=== PATIENT | female | born 1995 | race African-American/Black ===

== ENCOUNTER 2020-03-29 22:01 | Emergency (ER) | payer OTHER ==
[~2020-03-29] VITALS: Ht 175.3 cm; Wt 104.3 kg
[~2020-03-29 22:01] MED LIST: BACTRIM DS TAB1 EACH PO
[2020-03-29] MEDS ORDERED: PNV 29-1 TABLE1 EACH PO (22:17)
[2020-03-29 22:54] LABS: URINE BILIRUBIN NEGATIVE (Negative); URINE BLOOD NEGATIVE (Negative); URINE CLARITY CLEAR; URINE COLOR YELLOW; URINE GLUCOSE-RANDOM* NEGATIVE (Negative); URINE KETONES NEGATIVE (Negative); URINE LEUKOCYTES-REFLEX TRACE (Negative); URINE NITRITE-REFLEX NEGATIVE (Negative); URINE PROTEIN (DIPSTICK) NEGATIVE (Negative); URINE UROBILINOGEN 0.2 E.U./dl (0.2-1.0)
[2020-03-29 23:15] LABS: BASOPHILS 1.1 % (0.0-2.0); EOSINOPHILS 1.2 % (0.0-3.0); HEMATOCRIT 36.4 % (37.0-47.0); HEMOGLOBIN 11.8 gm/dL (12.0-15.0); LYMPHOCYTES 35.4 % (24.0-44.0); MCH 21.9 pg (26.0-34.0); MCHC 32.5 g/dL (28.0-37.0); MCV 67.3 fL (80.0-100.0); MONOCYTES 7.6 % (1.0-8.0); PLATELET COUNT 325 thou/uL (150-400); POLYS 54.7 % (36.0-66.0); RDW 14.4 % (10.5-14.5); WBC 7.4 thou/uL (4.0-11.0)
[2020-03-29 23:25] LABS: ANION GAP 11 mmol/L (7-16); BUN 10 mg/dL (7-18); CALCIUM 8.7 mg/dL (8.5-10.1); CHLORIDE 104 mmol/L (98-107); CO2 23 mmol/L (21-32); CREATININE 0.8 mg/dL (0.6-1.0); GLUCOSE 116 mg/dL (74-106); POTASSIUM 3.5 mmol/L (3.5-5.1); SODIUM 138 mmol/L (136-145)
[2020-03-29 23:28] LABS: ALBUMIN 3.5 g/dL (3.4-5.0); DIRECT BILIRUBIN < 0.1 mg/dL (<0.1-0.2); LIPASE 105 U/L (73-393); SGOT 15 U/L (15-37); SGPT 22 U/L (30-65); TOTAL BILIRUBIN 0.2 mg/dL (0.2-1.0)
[2020-03-30 02:50] VITALS: BP 102/48
== END 2020-03-30 02:40 | disposition home or self-care (01) ==
LOC: ER 22:01
PROVIDERS: Emergency Medicine
DX: O99.611 Diseases of the digestive system complicating pregnancy, first trimester (principal); K42.9 Umbilical hernia without obstruction or gangrene; Z3A.01 Less than 8 weeks gestation of pregnancy; Z79.899 Other long term (current) drug therapy